=== PATIENT | female | born 1950 | race African-American/Black ===

== ENCOUNTER 2020-09-25 09:46 | Day surgery (SDC) | payer MEDICARE, OTHER ==
[2020-09-25] MEDS ORDERED: Xylocaine 1% Vial 30 ML PF IJ ONE (09:47)
[2020-09-25] MEDS ORDERED: Ketamine HCl 50 MG/ML IV ONE (09:47)
[2020-09-25] MEDS ORDERED: DIPRIVAN 200 MG/20 ML IV ONE (09:47)
[2020-09-25] MEDS ORDERED: Sensorcaine 0.25% 10 ML IJ ONE (09:47)
--- NOTE | 2020-09-25 13:07 | XRAY ---
Indication: Left lumbar sympathetic nerve block. Intraoperative fluoroscopy was provided for 34 seconds. 3 digital spot images submitted for interpretation demonstrates left posterior needle tip projecting just anterior to a mid lumbar segment, possibly L3. Small amount of contrast injected for needle tip placement. Correlate with intraoperative findings/report.
--- NOTE | 2020-09-25 13:17 | XRAY ---
34 seconds fluoroscopy time in surgery for left lumbar sympathetic nerve block.
[2020-09-25] MEDS ORDERED: Lactated Ringers 1,000 ML IV ONE (16:48)
== END 2020-09-25 11:45 | disposition home or self-care (01) ==
LOC: SDC-PAIN 09:46
PROVIDERS: ATTEND Psychiatry & Neurology Pain Medicine
DX: G90.522 Complex regional pain syndrome I of left lower limb (principal); I10 Essential (primary) hypertension; E11.9 Type 2 diabetes mellitus without complications; K44.9 Diaphragmatic hernia without obstruction or gangrene; Z79.899 Other long term (current) drug therapy
CPT/HCPCS: 64520; 72100; 77002; 82947; 82962; 99100; J2001; J2704; Q9966

== ENCOUNTER 2021-07-30 10:06 | Day surgery (SDC) | payer MEDICARE, OTHER ==
[2021-07-30] MEDS ORDERED: Xylocaine 1% Vial 30 ML PF IJ ONE (10:07)
[2021-07-30] MEDS ORDERED: Lactated Ringers 1,000 ML IV ONE (11:25)
[2021-07-30] MEDS ORDERED: DIPRIVAN 200 MG/20 ML IV ONE (12:35)
--- NOTE | 2021-07-30 13:50 | XRAY ---
Indication: Left sympathetic nerve block. Intraoperative fluoroscopy provided for 1 minute 14 seconds. 2 lateral digital spot image submitted for interpretation demonstrates posterior needle tip projecting just anterior to a mid lumbar segment. Small amount of contrast injected for needle tip placement. Correlate with intraoperative findings/report.
--- NOTE | 2021-07-30 13:57 | XRAY ---
1 minute and 14 seconds fluoroscopy time in surgery for left lumbar sympathetic nerve block.
== END 2021-07-30 13:30 | disposition home or self-care (01) ==
LOC: SDC-PAIN 10:06
PROVIDERS: ATTEND Psychiatry & Neurology Pain Medicine
DX: G90.522 Complex regional pain syndrome I of left lower limb (principal); E11.9 Type 2 diabetes mellitus without complications; Z79.899 Other long term (current) drug therapy
CPT/HCPCS: 64520; 72020; 77002; 82947; 99100; J2001; J2704; Q9966

== ENCOUNTER 2022-01-14 06:21 | Day surgery (SDC) | payer MEDICARE, OTHER ==
[2022-01-14] MEDS ORDERED: Xylocaine 1% Vial 30 ML PF IJ ONE (06:22)
[2022-01-14] MEDS ORDERED: DIPRIVAN 200 MG/20 ML IV ONE (08:43)
[2022-01-14] MEDS ORDERED: Lactated Ringers 1,000 ML IV ONE (09:18)
--- NOTE | 2022-01-14 10:52 | XRAY ---
Indication: Spinal stimulator placement. Intraoperative fluoroscopy provided for 1 minute 31 seconds. 3 digital spot image submitted for interpretation demonstrates initial posterior introducer needle at thoracolumbar junction. Ultimate single epidural lead insertion with tip projecting T9-T10 interspace level. Correlate with intraoperative findings/report.
--- NOTE | 2022-01-14 11:11 | XRAY ---
1 minute and 31 seconds fluoroscopy time in surgery for placement of spinal cord stimulator.
== END 2022-01-14 09:22 | disposition home or self-care (01) ==
LOC: SDC-PAIN 06:21
PROVIDERS: ATTEND Psychiatry & Neurology Pain Medicine
DX: G90.523 Complex regional pain syndrome I of lower limb, bilateral (principal); E11.9 Type 2 diabetes mellitus without complications; Z79.899 Other long term (current) drug therapy
CPT/HCPCS: 63650; 72100; 77002; 82947; C1778; 99100; J2001; J2704

== ENCOUNTER 2022-03-04 06:41 | Day surgery (SDC) | payer MEDICARE, OTHER ==
[2022-03-04] MEDS ORDERED: BACIGUENT 30 GM ONE (07:35)
[2022-03-04] MEDS ORDERED: DIPRIVAN 200 MG/20 ML IV ONE ×2 (08:01→08:36)
[2022-03-04] MEDS ORDERED: Lactated Ringers 1,000 ML IV ONE ×2 (08:55→09:09)
--- NOTE | 2022-03-04 09:46 | XRAY ---
2 minutes 9 seconds of fluoroscopy was used in surgery for a spinal cord stimulator trial.
--- NOTE | 2022-03-04 10:14 | XRAY ---
Indication: Spinal cord stimulator trial. Intraoperative fluoroscopy provided for 2 minutes 9 seconds. 3 digital spot images submitted for interpretation demonstrates insertion of single epidural lead at thoracolumbar junction. Lead terminates T9 level. Correlate with intraoperative findings/report.
== END 2022-03-04 09:27 | disposition home or self-care (01) ==
LOC: SDC-PAIN 06:41
PROVIDERS: ATTEND Psychiatry & Neurology Pain Medicine
DX: G90.529 Complex regional pain syndrome I of unspecified lower limb (principal); E11.9 Type 2 diabetes mellitus without complications; Z79.899 Other long term (current) drug therapy
CPT/HCPCS: 72100; 77002; 82947; 99100; J2704; A9270-GY

== ENCOUNTER 2023-01-27 08:11 | Day surgery (SDC) | payer MEDICARE, OTHER ==
[2023-01-27] MEDS ORDERED: LIDOCAINE HCL 1% 50 MG/5 ML VL PF IJ ONE (08:12)
[2023-01-27] MEDS ORDERED: Sodium Chloride 0.9(Preservative Free) 10 ML IJ ONE (08:12)
[2023-01-27] MEDS ORDERED: Depo-Medrol 40 MG/ML IM ONE (08:12)
[2023-01-27] MEDS ORDERED: DIPRIVAN 200 MG/20 ML IV ONE (09:29)
--- NOTE | 2023-01-27 10:28 | XRAY ---
Indication: Lumbar LINA. Intraoperative fluoroscopy provided for 24 seconds. 2 digital spot image submitted for interpretation demonstrates posterior needle tip projecting posterior to L1-L2 interspace. Small amount of contrast injected for needle tip placement. Correlate with intraoperative findings/report. Incidental incompletely visualized inferior bilateral posterior fusion hardware and incompletely visualized left epidural stimulator leads.
--- NOTE | 2023-01-27 11:15 | XRAY ---
24 seconds of fluoroscopy was used in surgery for a lumbar LINA.
[2023-01-27] MEDS ORDERED: Lactated Ringers 1,000 ML IV ONE (14:15)
== END 2023-01-27 10:00 | disposition home or self-care (01) ==
LOC: SDC-PAIN 08:11
PROVIDERS: ATTEND Psychiatry & Neurology Pain Medicine
DX: M54.16 Radiculopathy, lumbar region (principal); Z79.899 Other long term (current) drug therapy
CPT/HCPCS: 62321; 72100; 77003; J1030; J2001; J2704; Q9966